=== PATIENT | male | born 1955 | race Caucasian/White ===

== ENCOUNTER 2016-12-22 12:53 | Emergency (ER) | payer MEDICAID ==
[~2016-12-22] VITALS: Ht 170.2 cm; Wt 86.0 kg
[2016-12-22 13:07] LABS: GLUCOSE,POINT OF CARE 106 MG/DL (70-110)
[2016-12-22] MEDS ORDERED: ALLO100T PO (13:08)
[2016-12-22] MEDS ORDERED: SIMV20TA6 PO (13:08)
[2016-12-22 16:00] VITALS: BP 126/75
== END 2016-12-22 16:09 | disposition home or self-care (01) ==
LOC: EMS 12:55
DX: S62.603B Fracture of unspecified phalanx of left middle finger, initial encounter for open fracture (principal); M79.645 Pain in left finger(s); E11.9 Type 2 diabetes mellitus without complications; X58.XXXA Exposure to other specified factors, initial encounter; Y93.89 Activity, other specified; Y92.89 Other specified places as the place of occurrence of the external cause; Y99.8 Other external cause status
CPT/HCPCS: 82962; 99282

== ENCOUNTER 2017-01-02 16:21 | Emergency (ER) | payer MEDICAID ==
[~2017-01-02] VITALS: Ht 170.2 cm; Wt 87.0 kg
[~2017-01-02 16:21] MED LIST: ALLO100T PO; SIMV20TA6 PO
[2017-01-02 16:47] LABS: GLUCOSE,POINT OF CARE 86 MG/DL (70-110)
[2017-01-02 17:43] VITALS: BP 121/76
== END 2017-01-02 17:46 | disposition home or self-care (01) ==
LOC: EMS 16:26
DX: Z48.02 Encounter for removal of sutures (principal); S61.213D Laceration without foreign body of left middle finger without damage to nail, subsequent encounter; E11.9 Type 2 diabetes mellitus without complications; X58.XXXD Exposure to other specified factors, subsequent encounter; Y92.89 Other specified places as the place of occurrence of the external cause; Y99.8 Other external cause status
CPT/HCPCS: 82962; 99282

== ENCOUNTER 2017-01-12 11:07 | Emergency (ER) | payer MEDICAID ==
[~2017-01-12] VITALS: Ht 170.2 cm; Wt 86.4 kg
[2017-01-12 11:59] VITALS: BP 117/87
== END 2017-01-12 13:15 | disposition home or self-care (01) ==
LOC: EMS 11:09
DX: S61.412D Laceration without foreign body of left hand, subsequent encounter (principal); E11.9 Type 2 diabetes mellitus without complications; X58.XXXD Exposure to other specified factors, subsequent encounter; Y92.89 Other specified places as the place of occurrence of the external cause; Y99.8 Other external cause status
CPT/HCPCS: 99284

== ENCOUNTER 2022-10-27 12:05 | Emergency (ER) | payer MEDICARE, MEDICAID ==
[~2022-10-27] VITALS: Ht 162.6 cm; Wt 90.9 kg
[~2022-10-27 12:05] MED LIST changes: +SIMV-43 PO; -SIMV20TA6 PO
[2022-10-27] MEDS ORDERED: CARV3.1231 PO (12:13)
[2022-10-27] MEDS ORDERED: APIX2.5T PO (12:13)
[2022-10-27] MEDS ORDERED: LISI-893 PO (12:13)
[2022-10-27 13:43] LABS: BASOPHILS % (AUTO) 1.1 % (0.0-2.0); EOSINOPHILS % (AUTO) 0.8 % (1.0-6.0); HEMATOCRIT 42.6 % (41-53); LYMPHOCYTES # (AUTO) 2.2 K/uL (1.0-4.8); MEAN CORPUSCULAR HEMOGLOBIN 30.7 pg (26.0-34.0); MEAN CORPUSCULAR HGB CONC 32.9 G/dL (31.0-37.0); MEAN CORPUSCULAR VOLUME 93 fL (80-100); MONOCYTES # (AUTO) 0.5 K/uL (0.1-1.0); MONOCYTES % (AUTO) 6.7 % (2.0-9.0); NEUTROPHILS % (AUTO) 59.4 % (40.0-70.0); PLATELET COUNT (AUTO) 298 K/uL (150-450); RED BLOOD CELL COUNT(AUTO) 4.56 MIL/uL (4.50-5.90); RED CELL DISTRIBUTION WIDTH 14.2 % (11.5-14.5)
[2022-10-27 13:58] LABS: ANION GAP 6 mmol/L (8-16); CALCIUM, TOTAL 10.2 mg/dL (8.8-10.5); CARBON DIOXIDE 29 mmol/L (22-29); CHLORIDE 105 mmol/L (98-107); GLOMERULAR FILTR. RATE CALC > 60 mL/min (>60); GLUCOSE,RANDOM 80 mg/dL (70-110); POTASSIUM 4.6 mmol/L (3.5-5.1); SODIUM SERUM 140 mmol/L (136-145); UREA NITROGEN, BLOOD 16 mg/dL (7-18)
[2022-10-27 14:04] LABS: ALANINE AMINOTRANSFERASE 43 U/L (12-78); ALBUMIN 4.2 g/dL (3.4-5.0); ALKALINE PHOSPHATASE 123 U/L (46-116); ASPARTATE AMINOTRANSFERASE 35 U/L (15-37); BILIRUBIN,TOTAL 0.5 mg/dL (0.1-1.0); PHOSPHORUS 3.3 mg/dL (2.5-4.9); TOTAL PROTEIN, SERUM 7.7 g/dL (6.4-8.2)
[2022-10-27 14:24] VITALS: BP 148/85
[2022-10-27] MEDS ORDERED: ACETAMINOPHEN 500 MG TABLET PO ONE (14:30)
[2022-10-27] MEDS ORDERED: MECLIZINE HCL 25 MG TABLET PO ONE (14:30)
[2022-10-27] MEDS ORDERED: ONDANSETRON HCL 4 MG TABLET PO ONE (14:30)
[2022-10-27] MEDS ORDERED: MECL-134 PO (15:49)
[2022-10-27] MEDS ORDERED: CORTSUSP AD (15:49)
[2022-10-27] MEDS ORDERED: ACET-66 PO (15:49)
[2022-10-27] MEDS ORDERED: ONDA-104 PO (15:49)
== END 2022-10-27 15:45 | disposition home or self-care (01) ==
LOC: EMS 12:13
DX: R42 Dizziness and giddiness (principal); H60.91 Unspecified otitis externa, right ear; E11.9 Type 2 diabetes mellitus without complications; E78.00 Pure hypercholesterolemia, unspecified; I10 Essential (primary) hypertension; Z98.890 Other specified postprocedural states
CPT/HCPCS: 99285; 70450; 80053; 83735; 84100; 84484; 85025; 36415; 93005; Q0162

== ENCOUNTER 2023-03-09 13:15 | Inpatient (IN) | payer MEDICARE, OTHER ==
[~2023-03-09] VITALS: Ht 162.6 cm; Wt 85.0 kg
[2023-03-09] VITALS (7 sets, daily range): BP systolic 83–90; BP diastolic 50–61; PULSE 62–77; RESP 15–21; TEMP 97.8–98.6
[~2023-03-09 13:15] MED LIST changes: +ACET-66 PO; +APIX2.5T PO; +CARV3.1231 PO; +CORTSUSP AD; +LIDOCAINE/PF 2% 5 ML VIAL IM ONE; +LISI-893 PO; +MECL-134 PO; +ONDA-104 PO; +PROPOFOL 1% 20 ML VIAL IVP ONE
[2023-03-09] MEDS ORDERED: PANTOPRAZOLE SODIUM 40 MG/VIAL IVP ONE (14:00)
[2023-03-09] MEDS ORDERED: PANTOPRAZOLE SODIUM 80 MG in SODIUM CHLORIDE 0.9% 100 ML IV SCH ×2 (14:00→19:45)
[2023-03-09 14:01] LABS: BASOPHILS % (AUTO) 1.1 % (0.0-2.0); EOSINOPHILS % (AUTO) 1.7 % (1.0-6.0); HEMATOCRIT 32.7 % (41-53); HEMOGLOBIN 10.7 g/dL (13.5-17.5); LYMPHOCYTES # (AUTO) 2.1 K/uL (1.0-4.8); MEAN CORPUSCULAR HEMOGLOBIN 30.4 pg (26.0-34.0); MEAN CORPUSCULAR HGB CONC 32.5 G/dL (31.0-37.0); MEAN CORPUSCULAR VOLUME 93 fL (80-100); MONOCYTES # (AUTO) 0.8 K/uL (0.1-1.0); MONOCYTES % (AUTO) 6.5 % (2.0-9.0); NEUTROPHILS # (AUTO) 9.2 K/uL (1.8-7.7); NEUTROPHILS % (AUTO) 73.7 % (40.0-70.0); PLATELET COUNT (AUTO) 327 K/uL (150-450); RED BLOOD CELL COUNT(AUTO) 3.51 MIL/uL (4.50-5.90); RED CELL DISTRIBUTION WIDTH 14.8 % (11.5-14.5)
[2023-03-09 14:14] LABS: INR 1.1 (0.9-1.1); PROTHROMBIN TIME 11.5 SEC (9.4-11.6)
[2023-03-09] MEDS ORDERED: SODIUM CHLORIDE 0.9% 1,000 ML IV ONE (14:15)
[2023-03-09 14:17] LABS: ALANINE AMINOTRANSFERASE 25 U/L (12-78); ALBUMIN 3.7 g/dL (3.4-5.0); ALKALINE PHOSPHATASE 96 U/L (46-116); ANION GAP 5 mmol/L (8-16); ASPARTATE AMINOTRANSFERASE 19 U/L (15-37); BILIRUBIN,TOTAL 1.2 mg/dL (0.1-1.0); CALCIUM, TOTAL 9.7 mg/dL (8.8-10.5); CARBON DIOXIDE 29 mmol/L (22-29); CHLORIDE 98 mmol/L (98-107); GLOMERULAR FILTR. RATE CALC 36 mL/min (>60); GLUCOSE,RANDOM 132 mg/dL (70-110); SODIUM SERUM 132 mmol/L (136-145); TOTAL PROTEIN, SERUM 6.7 g/dL (6.4-8.2)
[2023-03-09 14:23] LABS: LACTIC ACID 2.1 mmol/L (0.4-2.0)
[2023-03-09 15:38] LABS: APPEARANCE,URINE HAZY (CLEAR); BILIRUBIN,URINE NEGATIVE (NEGATIVE); GLUCOSE, URINE (UA) TRACE mg/dL (NEGATIVE); KETONES,URINE NEGATIVE (NEGATIVE); LEUKOCYTE ESTERASE ,URINE TRACE (NEGATIVE); NITRATE,URINE NEGATIVE (NEGATIVE); OCCULT BLOOD,URINE NEGATIVE (NEGATIVE); PROTEIN,URINE TRACE mg/dL (NEGATIVE); SPECIFIC GRAVITIY, URINE 1.019 (1.003-1.030); UROBILINOGEN,URINE <=1.0 mg/dL (<=1.0)
[2023-03-09] MEDS ORDERED: SODIUM TETRADECYL SULFATE 3% 60 MG/2 ML VIAL IVP ONE (16:16)
[2023-03-09] MEDS ORDERED: EPINEPHrine 1:10,000 [1 MG/10 ML] SYRINGE ONE (16:16)
[2023-03-09] MEDS ORDERED: FLUMAZENIL 0.1 MG/ML 5 ML VIAL IVP ONE (16:16)
[2023-03-09] MEDS ORDERED: DiphenhydrAMINE HCL 50 MG/ML VIAL ONE (16:16)
[2023-03-09] MEDS ORDERED: NALOXONE HCL 0.4 MG/ML VIAL ONE (16:16)
[2023-03-09] MEDS ORDERED: ATROPINE SULFATE 0.1 MG/ML 10 ML SYRINGE IVP ONE (16:17)
[2023-03-09] MEDS ORDERED: SODIUM CHLORIDE 0.9% 1,000 ML ONE (16:17)
[2023-03-09 16:39] LABS: BACTERIA,URINE None Seen /HPF (None Seen); CALCIUM OXALATE CRYSTALS,UR Few /LPF (None Seen); RBC,URINE None Seen /HPF (0-2)
[2023-03-09] MEDS ORDERED: SODIUM ZIRCONIUM CYCLOSILICATE 5 GM POWDER PACKET PO ONE (19:15)
[2023-03-09] MEDS ORDERED: ALBUTEROL SULFATE 2.5 MG/0.5 ML NEB SOLUTION NEB PRN (19:45)
[2023-03-09] MEDS ORDERED: MORPHINE SULFATE 2 MG/ML SYRINGE IVP PRN (19:45)
[2023-03-09] MEDS ORDERED: HYDROCODONE/ACETAMINOPHEN 5-325 MG TABLET PO PRN (19:45)
[2023-03-09] MEDS ORDERED: IPRATROPIUM BROMIDE 0.5 MG/2.5 ML NEB SOLUTION NEB PRN (19:45)
[2023-03-09] MEDS ORDERED: ONDANSETRON HCL 4 MG/2 ML VIAL IVP PRN (19:45)
[2023-03-09] MEDS ORDERED: ZOLPIDEM TARTRATE 5 MG TABLET PO PRN (19:45)
[2023-03-09] MEDS ORDERED: ACETAMINOPHEN 325 MG TABLET PO PRN (19:45)
[2023-03-09] MEDS ORDERED: BISACODYL 10 MG RECTAL RECTAL SUPPOSITORY PR PRN (19:45)
[2023-03-09] MEDS ORDERED: MAGNESIUM HYDROXIDE SUSPENSION 30 ML UDCUP PO PRN (19:45)
[2023-03-09 20:33] LABS: HEMATOCRIT 29.5 % (41-53); HEMOGLOBIN 9.7 g/dL (13.5-17.5)
[2023-03-09 22:01] LABS: HEMATOCRIT 28.8 % (41-53); HEMOGLOBIN 9.2 g/dL (13.5-17.5)
[2023-03-09] MEDS: PANTOPRAZOLE SODIUM 80 MG in SODIUM CHLORIDE 0.9% 100 ML IV SCH (22:49)
[2023-03-09] MEDS ORDERED: PHENYLEPHRINE 200 MG/D5%-WATER 250 ML IV PRN (23:45)
[2023-03-10] MEDS ORDERED: PANTOPRAZOLE SODIUM 80 MG in SODIUM CHLORIDE 0.9% 100 ML IV SCH ×2
[2023-03-10 00:25] VITALS: BP 100/57; PULSE 86; RESP 15; TEMP 98.3
[2023-03-10 00:40] VITALS: BP 95/57; PULSE 85; RESP 16; TEMP 99
[2023-03-10 00:55] VITALS: BP 92/50; PULSE 88; RESP 17; TEMP 99.2
[2023-03-10 01:10] VITALS: BP 89/53; PULSE 90; RESP 19; TEMP 99.3
[2023-03-10 01:40] VITALS: BP 93/53; PULSE 54; RESP 16; TEMP 99.3
[2023-03-10 02:02] LABS: HEMATOCRIT 30.3 % (41-53); HEMOGLOBIN 9.9 g/dL (13.5-17.5)
[2023-03-10 07:00] VITALS: O2SAT 97
[2023-03-10 08:22] LABS: HEMATOCRIT 33.6 % (41-53); HEMOGLOBIN 11.2 g/dL (13.5-17.5)
[2023-03-10] MEDS: PANTOPRAZOLE SODIUM 80 MG in SODIUM CHLORIDE 0.9% 100 ML IV SCH ×2 (08:59→18:06)
[2023-03-10 09:17] LABS: BASOPHILS % (AUTO) 0.3 % (0.0-2.0); EOSINOPHILS % (AUTO) 0.1 % (1.0-6.0); LYMPHOCYTES # (AUTO) 3.2 K/uL (1.0-4.8); MEAN CORPUSCULAR HEMOGLOBIN 29.8 pg (26.0-34.0); MEAN CORPUSCULAR HGB CONC 33.3 G/dL (31.0-37.0); MEAN CORPUSCULAR VOLUME 90 fL (80-100); MONOCYTES # (AUTO) 1.4 K/uL (0.1-1.0); MONOCYTES % (AUTO) 7.3 % (2.0-9.0); NEUTROPHILS # (AUTO) 14.2 K/uL (1.8-7.7); NEUTROPHILS % (AUTO) 75.3 % (40.0-70.0); PLATELET COUNT (AUTO) 258 K/uL (150-450); RED BLOOD CELL COUNT(AUTO) 3.69 MIL/uL (4.50-5.90); RED CELL DISTRIBUTION WIDTH 16.1 % (11.5-14.5)
[2023-03-10 09:20] LABS: CALCIUM, TOTAL 8.7 mg/dL (8.8-10.5); CREATININE 1.26 mg/dL (0.60-1.30); POTASSIUM 4.4 mmol/L (3.5-5.1)
[2023-03-10 09:26] LABS: BILIRUBIN,TOTAL 1.3 mg/dL (0.1-1.0); TOTAL PROTEIN, SERUM 6.2 g/dL (6.4-8.2)
[2023-03-10 14:11] LABS: HEMATOCRIT 34.3 % (41-53); HEMOGLOBIN 11.6 g/dL (13.5-17.5)
[2023-03-10 15:01] LABS: GLUCOMETER DEV NAME(LOC) ER.6
[2023-03-10 20:21] LABS: HEMATOCRIT 30.4 % (41-53); HEMOGLOBIN 10.1 g/dL (13.5-17.5)
[2023-03-11 02:04] LABS: HEMATOCRIT 29.3 % (41-53); HEMOGLOBIN 9.8 g/dL (13.5-17.5)
[2023-03-11] MEDS: PANTOPRAZOLE SODIUM 80 MG in SODIUM CHLORIDE 0.9% 100 ML IV SCH ×2 (04:08→14:13)
[2023-03-11 06:31] LABS: GLUCOMETER DEV NAME(LOC) ER.6
[2023-03-11 08:07] LABS: HEMATOCRIT 28.7 % (41-53); HEMOGLOBIN 9.6 g/dL (13.5-17.5)
[2023-03-11 15:00] LABS: HEMATOCRIT 30.3 % (41-53); HEMOGLOBIN 10.3 g/dL (13.5-17.5)
[2023-03-11 15:35] LABS: BASOPHILS % (AUTO) 1.7 % (0.0-2.0); EOSINOPHILS % (AUTO) 2.5 % (1.0-6.0); HEMATOCRIT 31.6 % (41-53); HEMOGLOBIN 10.6 g/dL (13.5-17.5); LYMPHOCYTES % (AUTO) 29.8 % (22.0-44.0); MEAN CORPUSCULAR HEMOGLOBIN 30.6 pg (26.0-34.0); MEAN CORPUSCULAR HGB CONC 33.7 G/dL (31.0-37.0); MEAN CORPUSCULAR VOLUME 91 fL (80-100); MONOCYTES # (AUTO) 0.5 K/uL (0.1-1.0); MONOCYTES % (AUTO) 7.7 % (2.0-9.0); NEUTROPHILS # (AUTO) 3.8 K/uL (1.8-7.7); NEUTROPHILS % (AUTO) 58.3 % (40.0-70.0); PLATELET COUNT (AUTO) 246 K/uL (150-450); RED BLOOD CELL COUNT(AUTO) 3.47 MIL/uL (4.50-5.90); RED CELL DISTRIBUTION WIDTH 15.5 % (11.5-14.5)
[2023-03-11 15:41] LABS: ANION GAP 9 mmol/L (8-16); CALCIUM, TOTAL 9.3 mg/dL (8.8-10.5); CARBON DIOXIDE 26 mmol/L (22-29); CHLORIDE 104 mmol/L (98-107); CREATININE 0.93 mg/dL (0.60-1.30); GLOMERULAR FILTR. RATE CALC > 60 mL/min (>60); GLUCOSE,RANDOM 98 mg/dL (70-110); POTASSIUM 4.7 mmol/L (3.5-5.1); SODIUM SERUM 139 mmol/L (136-145)
[2023-03-11 15:47] LABS: ALANINE AMINOTRANSFERASE 17 U/L (12-78); ALKALINE PHOSPHATASE 76 U/L (46-116); ASPARTATE AMINOTRANSFERASE 21 U/L (15-37); BILIRUBIN,TOTAL 0.7 mg/dL (0.1-1.0); TOTAL PROTEIN, SERUM 6.5 g/dL (6.4-8.2)
[2023-03-11 18:07] LABS: GLUCOMETER DEV NAME(LOC) ER.6
[2023-03-11 18:54] VITALS: BP 136/72; PULSE 67; RESP 20; TEMP 98.2
[2023-03-11] MEDS ORDERED: SODIUM CHLORIDE 0.9% 500 ML IV ONE (19:38)
[2023-03-11 20:30] LABS: HEMATOCRIT 28.9 % (41-53); HEMOGLOBIN 9.7 g/dL (13.5-17.5)
[2023-03-11] MEDS: GuaiFENesin/D-METHORPHAN [SUGAR-FREE] 200-20MG/10 ML SYRUP UDCUP PO PRN (23:19)
[2023-03-12 00:05] VITALS: BP 134/73; PULSE 72; RESP 18; TEMP 97.7
[2023-03-12] MEDS: PANTOPRAZOLE SODIUM 80 MG in SODIUM CHLORIDE 0.9% 100 ML IV SCH ×2 (00:16→10:29)
[2023-03-12 02:07] LABS: HEMATOCRIT 26.9 % (41-53); HEMOGLOBIN 9.3 g/dL (13.5-17.5)
[2023-03-12 04:00] VITALS: BP 100/63; PULSE 74; RESP 18; TEMP 98.1
[2023-03-12 05:16] LABS: GLUCOMETER DEV NAME(LOC) 5S.1B
[2023-03-12 08:02] VITALS: BP 140/79; PULSE 73; RESP 19; TEMP 98
[2023-03-12 08:30] LABS: HEMATOCRIT 31.9 % (41-53); HEMOGLOBIN 10.9 g/dL (13.5-17.5)
[2023-03-12] MEDS: GuaiFENesin/D-METHORPHAN [SUGAR-FREE] 200-20MG/10 ML SYRUP UDCUP PO PRN (10:42)
[2023-03-12 11:08] VITALS: BP 141/85; PULSE 66; RESP 19; TEMP 98.1
[2023-03-12] MEDS ORDERED: PANT-31 PO (12:31)
[2023-03-12] MEDS ORDERED: PANTOPRAZOLE SODIUM 40 MG DR TABLET PO ONE (12:45)
[2023-03-12 14:16] LABS: GLUCOMETER DEV NAME(LOC) 5N.2C
[2023-03-12 14:16] LABS: GLUCOMETER DEV NAME(LOC) 5S.1B
== END 2023-03-12 14:30 | disposition home health service (06) | DRG 378 ==
LOC: EMS 13:34 → ICUN 15:34 → 5S 03-11 17:23
PROVIDERS: ADMIT Hospitalist; ATTEND Hospitalist
PROC: 3E0G8GC Introduction of Other Therapeutic Substance into Upper GI, Via Natural or Artificial Opening Endoscopic (ICD-10-PCS; 2023-03-09)
PROC: 30233N1 Transfusion of Nonautologous Red Blood Cells into Peripheral Vein, Percutaneous Approach (ICD-10-PCS; 2023-03-09)
PROC: 0W3P8ZZ Control Bleeding in Gastrointestinal Tract, Via Natural or Artificial Opening Endoscopic (ICD-10-PCS; 2023-03-09)
PROC: 0DB68ZX Excision of Stomach, Via Natural or Artificial Opening Endoscopic, Diagnostic (ICD-10-PCS; principal; 2023-03-09 16:30)
DX: K26.4 Chronic or unspecified duodenal ulcer with hemorrhage (principal); N17.9 Acute kidney failure, unspecified; D50.0 Iron deficiency anemia secondary to blood loss (chronic); E87.5 Hyperkalemia; E78.00 Pure hypercholesterolemia, unspecified; K29.71 Gastritis, unspecified, with bleeding; M10.9 Gout, unspecified; I25.10 Atherosclerotic heart disease of native coronary artery without angina pectoris; I95.9 Hypotension, unspecified; E11.9 Type 2 diabetes mellitus without complications; I10 Essential (primary) hypertension; Z83.3 Family history of diabetes mellitus; Z95.0 Presence of cardiac pacemaker; Z79.01 Long term (current) use of anticoagulants; Z82.49 Family history of ischemic heart disease and other diseases of the circulatory system; Z87.11 Personal history of peptic ulcer disease
CPT/HCPCS: 71045; 80053; 81001; 82962; 83605; 84132; 84484; 85014; 85018; 85025; 85610; 85730; 86850; 86900; 86901; 86923; 93005; 93306; 99291; C9113; G0378; J0171; J0461; J1200; J2270; J2310; J2370; J2405; J2704; J3490; J7030; J7040; J7050; P9016; Q9967; 36415-L1; 36415-TC